=== PATIENT | male | born 1980 | race African-American/Black ===

== ENCOUNTER 2023-10-15 16:23 | Observation (INO) ==
--- NOTE | 2023-10-15 16:49 | ED Triage Note ---
Date of Service October 15, 2023 Provider in Triage Author: Suzie Velázquez History of Present Illness This patient was briefly evaluated while in triage. An abbreviated physical exam was performed. This patient is a 43-year-old Male who presents to the ED for evaluation of right lower abdominal pain. He states pain started around 11 AM when he was on a zoom meeting. Pain is in the right lower side. He states he feels somewhat constipated and reports some slight difficulty urinating. Physical Exam VITALS: Vitals are noted on the nurse's note and reviewed by myself. GENERAL: This is a 43-year-old male, in no acute distress, nondiaphoretic, well- developed well-nourished. SKIN: The skin was without rashes, erythema, edema, or bruising. HEAD: Normocephalic atraumatic. EARS: External auditory canals clear, tympanic membranes pearly keller without erythema or effusion bilaterally. EYES: Pupils equal round and reactive to light and accommodation. Conjunctivae without injection, sclerae without icterus. Extraocular movements intact. NOSE: Patent, turbinates without inflammation or discharge. No sinus tenderness. MOUTH: Mucous membranes moist. Tonsils are not enlarged. Pharynx without erythema or exudate. Uvula midline. Airway patent. Tongue does not deviate. NECK: Supple without nuchal rigidity. No lymphadenopathy. No thyromegaly. Cervical spine is nontender. No JVD. HEART: Regular rate and rhythm without murmurs gallops or rubs. LUNGS: Clear to auscultation bilaterally without wheezes, rales or rhonchi. No dullness to percussion. No retractions or accessory muscle use. ABDOMEN: Positive bowel sounds x 4. Normal tympanic percussion. Soft, nontender, without masses or organomegaly. Adorno sign negative. No guarding or rebound tenderness. MUSCULOSKELETAL: No muscle atrophy, erythema, or edema noted. Full range of motion without joint tenderness in all extremities. No tenderness to palpation. Normal gait. Strength 5/5 throughout. NEURO: Patient was alert and oriented to person place and time. Normal sensation to light and sharp touch. Deep tendon reflexes 2+ throughout. No focal neurological deficits. Initial orders for labs and / or imaging were placed and patient was placed in the waiting area until a bed is available. Please see further documentation for the full ED course.
--- NOTE | 2023-10-15 16:51 | Emergency Department Note ---
ED Provider Note History of Present Illness Chief Complaint: Abdominal Pain Stated Complaint: ABD PAIN NEAR APPENDIX AREA Time Seen by Provider: 10/15/23 16:49 This patient is a 43-year-old Male who presents to the ED for evaluation of right lower abdominal pain. He states pain started around 11 AM when he was on a zoom meeting. Pain is in the right lower side. He states he feels somewhat constipated and reports some slight difficulty urinating. Denies nausea/vomiting or any fevers. 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 He states pain is worse with standing and rates it a 7/10. Home Medications Medication Instructions Recorded Confirmed Type [place] Sea Hutson 1 cap PO QPM 10/15/23 10/15/23 History atorvastatin 20 mg tablet 20 mg PO QPM 10/15/23 10/15/23 History flaxseed oil 1,000 mg capsule 1,000 mg PO QPM 10/15/23 10/15/23 History multivitamin 1 tab PO DAILY 10/15/23 10/15/23 History Allergies Allergy/AdvReac Type Severity Reaction Status Date / Time pollen extracts Allergy Intermediate ITCHY Verified 10/15/23 20:01 EYES, SNEEZING Past Med/Surg History Medical History Low back pain Surgical History [place] teeth extracted Family History Family/Other Diabetes Coronary heart disease Social History Smoking Status: Never smoker Hx Alcohol Use: No Hx Substance Use: No Preferred Language: Russian Communication Ability: Effective Visual Impairment: No Limitations Hearing Ability: Normal marital status: marital status details: to his , 2 sons -- ages 3 and 1 yo. 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 How many Children do You have: 2 Feels Safe at Home: Yes Diet Comment: Keto diet caffeine: No Physical Activity Frequency: 5-6 Times per Week Physical Activity Frequency Comment: TM, walking or running 30 to 45 minutes/session Seatbelt Use: always Physical Exam Vital Signs Vital Signs - 24 hr 10/15/23 16:45 10/15/23 20:40 10/15/23 22:26 Temperature 36.4 C L Temperature Source Temporal Artery Scan Pulse Rate 91 H 75 Pulse Rate [Finger] 84 Respiratory Rate 16 18 Respiratory Effort / Characteristics Non-Labored Spontaneous Non-Labored Spontaneous Respiratory Depth Normal Normal Blood Pressure 140/96 Blood Pressure [Left Arm] 150/102 H Blood Pressure Mean 110 Blood Pressure Mean [Left Arm] 118 Pulse Oximetry 97 100 Oxygen Delivery Method Room Air Room Air Sepsis Recent Fever Within 48 Hours No Sepsis New/Unexplained Change in Mental Status N/A Sepsis Action Taken by Nursing No Action Required 10/15/23 23:01 10/15/23 23:32 10/15/23 23:50 Temperature Temperature Source Pulse Rate 74 68 Pulse Rate [Finger] Respiratory Rate 17 13 Respiratory Effort / Characteristics Respiratory Depth Blood Pressure 134/85 113/79 Blood Pressure [Left Arm] Blood Pressure Mean 101 90 Blood Pressure Mean [Left Arm] Pulse Oximetry 97 97 Oxygen Delivery Method Room Air Room Air Room Air Sepsis Recent Fever Within 48 Hours Sepsis New/Unexplained Change in Mental Status Sepsis Action Taken by Nursing VITALS: Vitals are noted on the nurse's note and reviewed by myself. GENERAL: This is a 43-year-old male, in no acute distress, well-developed well- nourished. SKIN: The skin was without rashes. HEART: Regular rate and rhythm without murmurs gallops or rubs. LUNGS: Clear to auscultation bilaterally without wheezes, rales or rhonchi. ABDOMEN: Positive bowel sounds x 4. Soft, moderate tenderness in the right lower quadrant. No guarding or rebound tenderness. NEURO: Patient was alert and oriented to person place and time. Course Administered Medications Discontinued Medications Bupivacaine HCl/Epinephrine Bitart (Bupivacaine/Epinephrine 0.5% Mpf 1:200,000 30 Ml Vial) Confirm Administered Dose 30 ml .ROUTE .STK-MED ONE Stop: 10/15/23 23:33 Last Admin: 10/16/23 01:01 Dose: 30 ml Documented By: BEN Cefoxitin Sodium (Mefoxin) 2,000 mg in 60 mls @ 100 mls/hr IV NOW STA Stop: 10/15/23 22:17 Last Infusion: 10/15/23 23:31 Dose: Infused Documented By: Admin: 10/15/23 22:47 Dose: 100 mls/hr Documented By: TRINH Ioversol (Optiray 320 125ml) 116 ml IV ONCE ONE Stop: 10/15/23 20:28 Last Admin: 10/15/23 20:29 Dose: 116 ml Documented By: DEEP Morphine Sulfate (Morphine Sulfate 4 Mg/Ml 1 Ml Carp\Vial) 4 mg IV NOW STA Stop: 10/15/23 21:59 Last Admin: 10/15/23 22:48 Dose: 4 mg Documented By: TRINH Ondansetron HCl (Ondansetron Inj 2 Mg/Ml 2 Ml Vial) 4 mg IV NOW STA Stop: 10/15/23 21:59 Last Admin: 10/15/23 22:47 Dose: 4 mg Documented By: TRINH Medical Decision Making Differential Diagnosis Appendicitis, testicular torsion, infections, diverticulitis, UTI, obstruction, mesenteric ischemia, aortic pathology, inflammatory bowel disease, renal colic, PUD, pancreatitis, biliary pathology, hernia, volvulus, constipation, as well as other pathologies. Home Medications was personally reviewed by me Laboratory Data Attestation: I reviewed the patient's lab results. 10/15/23 17:12 10/15/23 17:12 Lab Results 10/15/23 10/15/23 Range/Units 17:00 17:12 WBC 13.62 H (4.8-10.8) K/ul RBC 4.97 (4.70-6.10) M/uL Hgb 12.7 L (14.0-18.0) g/dl Hct 38.7 L (42.0-52.0) % MCV 77.9 L (80.0-100.0) fL MCH 25.6 (25.0-34.0) pg MCHC 32.8 (32.0-36.0) g/dL RDW Std Deviation 42.6 (36.4-46.3) fL RDW Coeff of Josias 15.3 H (11.5-14.5) % Plt Count 271 (130-400) K/uL MPV 11.2 (9.4-12.4) fL Immature Gran % (Auto) 0.5 % Neut % (Auto) 69.1 % Lymph % (Auto) 20.9 % [place] % (Auto) 8.5 % Eos % (Auto) 0.6 % Baso % (Auto) 0.4 % Neut # (Auto) 9.40 H (1.40-6.50) K/uL Lymph # (Auto) 2.85 (1.20-3.40) K/uL [place] # (Auto) 1.16 H (0.11-0.59) K/uL Eos # (Auto) 0.08 (0.00-0.50) K/uL Baso # (Auto) 0.06 (0.00-0.20) K/uL Immature Gran # (Auto) 0.07 (0.01-0.20) K/uL Sodium 138 (136-145) mmol/L Potassium 3.8 (3.5-5.1) mmol/L Chloride 104 (98-107) mmol/L Carbon Dioxide 25 (21-32) mmol/L Anion Gap 9 (3-11) BUN 20 (6-23) mg/dl Creatinine 0.90 (0.6-1.4) mg/dl Est Cr Clr Drug Dosing 167.6 ml/min Est GFR ( Amer) 121.7 ml/min Est GFR (Non-Af Amer) 105.0 ml/min BUN/Creatinine Ratio 22.2 H (10-20) Glucose 84 (70-99(Fasting)) mg/dl Calcium 9.2 (8.6-10.3) mg/dl Total Bilirubin 0.4 (0.2-1.0) mg/dl AST 21 (13-39) U/L ALT 20 (7-52) U/L Alkaline Phosphatase 60 (34-104) U/L Total Protein 7.6 (6.0-8.3) gm/dl Albumin 4.4 (3.4-5.0) gm/dl Globulin 3.2 (2.5-4.0) gm/dl Albumin/Globulin Ratio 1.4 (0.9-2) Lipase 20 (11-82) U/L Urine Color Yellow Urine Appearance Clear (Clear) Urine pH 5.5 (4.5-7.5) Ur Specific [place] 1.025 (1.000-1.030) Urine Protein Negative (Negative) Urine Glucose (UA) Negative (Negative) Urine Ketones Negative (Negative) Urine Blood Negative (Negative) Urine Nitrite Negative (Negative) Urine Bilirubin Negative (Negative) Urine Urobilinogen Negative (Negative) Ur Leukocyte Esterase Negative (Negative) Imaging Data Attestation: I personally reviewed and interpreted this imaging study as follows: Radiologist's Impression: Abdomen/Pelvis CT 10/15/23 16:49 CR Exam(s): CT ABDOMEN + PELVIS With Contrast IV Amt: 116 ml optiray 320 EXAM: CT Abdomen and Pelvis With Intravenous Contrast CLINICAL HISTORY: Reason for exam: rlq pain. TECHNIQUE: Axial computed tomography images of the abdomen and pelvis with intravenous contrast. CTDI is 28.28 mGy and DLP is 1366.67 mGy-cm. Automated exposure control was utilized for the study. A dose lowering technique was utilized adhering to the principles of ALARA. CONTRAST: Patient received 116 ml optiray 320 of IV contrast COMPARISON: No relevant prior studies available. FINDINGS: Lung bases: Unremarkable. No mass. No consolidation. ABDOMEN: Liver: Unremarkable. No mass. Gallbladder and bile ducts: Unremarkable. No calcified stones. No ductal dilation. Pancreas: Unremarkable. No mass. No ductal dilation. Spleen: Unremarkable. No splenomegaly. Adrenals: Unremarkable. No mass. Kidneys and ureters: Unremarkable. No solid mass. No hydronephrosis. Stomach and bowel: Unremarkable. No obstruction. No mucosal thickening. PELVIS: Appendix: Positive for appendicitis, consisting of a distended appendix measuring up to 1.5 cm of wall thickening and periappendiceal fat stranding. No perforation or abscess. Bladder: Unremarkable. No mass. Reproductive: Unremarkable as visualized. ABDOMEN and PELVIS: Intraperitoneal space: Unremarkable. No free air. No significant fluid collection. Bones/joints: No acute fracture. No dislocation. Soft tissues: Unremarkable. Vasculature: Unremarkable. No abdominal aortic aneurysm. Lymph nodes: Unremarkable. No enlarged lymph nodes. IMPRESSION: Positive for appendicitis, consisting of a distended appendix measuring up to 1.5 cm of wall thickening and periappendiceal fat stranding. No perforation or abscess. Communications: Verify Receipt Electronically signed by: Stephen Meyer MD 10/15/23 21:13 PM MDM Narrative This patient is a 43-year-old male who presents to the emergency department for evaluation of right lower quadrant abdominal pain. Labs revealed a leukocytosis of 13,000. CT was consistent with appendicitis, no rupture or abscess. Patient given a dose of cefoxitin. Case discussed with the general surgeon, Dr. Huggins who will take the patient to the OR for further management. Patient initially declined analgesics, later did complain of pain was given a small dose of morphine with Zofran. Impression Appendicitis Discharge Plan Visit Data Chief Complaint: Abdominal Pain Stated Complaint: ABD PAIN NEAR APPENDIX AREA ED Provider: Nelida Morgan ED Midlevel Provider: Suzie Velázquez Discharge Problem: Appendicitis Discharge Instructions Interventions: ED Discharge Assessment Last Done: 10/15/23 23:50
[2023-10-15 17:17] LABS: Appearance Urine Clear (Clear); Bilirubin Urine Negative (Negative); Blood Urine Negative (Negative); Color Urine Yellow; Glucose Urine UA Negative (Negative); Ketones Urine Negative (Negative); Leukocyte Esterase Urine Negative (Negative); Nitrite Urine Negative (Negative); Protein Urine Negative (Negative); Specific Gravity Urine 1.025 (1.000-1.030); Urobilinogen Urine Negative (Negative); pH Urine 5.5 (4.5-7.5)
[2023-10-15 18:03] LABS: Basophils # (auto) 0.06 K/uL (0.00-0.20); Basophils % (auto) 0.4 %; Eosinophils # (auto) 0.08 K/uL (0.00-0.50); Eosinophils % (auto) 0.6 %; Hematocrit (blood only) 38.7 % (42.0-52.0); Hemoglobin 12.7 g/dl (14.0-18.0); Immature Granulocytes # (auto) 0.07 K/uL (0.01-0.20); Immature Granulocytes % (auto) 0.5 %; Lymphocytes # (auto) 2.85 K/uL (1.20-3.40); Lymphocytes % (auto) 20.9 %; Mean Corpuscular Hemoglobin 25.6 pg (25.0-34.0); Mean Corpuscular Hgb Conc 32.8 g/dL (32.0-36.0); Mean Corpuscular Volume 77.9 fL (80.0-100.0); Mean Platelet Volume 11.2 fL (9.4-12.4); Monocytes # (auto) 1.16 K/uL (0.11-0.59); Monocytes % (auto) 8.5 %; Neutrophils % (auto) 69.1 %; Platelet Count 271 K/uL (130-400); RDW Coefficient of Variation 15.3 % (11.5-14.5); RDW Standard Deviation 42.6 fL (36.4-46.3); Red Blood Count 4.97 M/uL (4.70-6.10); White Blood Count 13.62 K/ul (4.8-10.8)
[2023-10-15 19:52] LABS: Albumin Level 4.4 gm/dl (3.4-5.0); Bilirubin,Total 0.4 mg/dl (0.2-1.0); Calcium 9.2 mg/dl (8.6-10.3); Potassium 3.8 mmol/L (3.5-5.1)
[2023-10-15 19:58] LABS: Albumin Globulin Ratio 1.4 (0.9-2); BUN Creatinine Ratio 22.2 (10-20); Creatinine Clr Calc Pharmacy 167.6 ml/min; Est GFR (African American) 121.7 ml/min; Globulin 3.2 gm/dl (2.5-4.0); Total Protein 7.6 gm/dl (6.0-8.3)
[2023-10-15] MEDS ORDERED: OPTIRAY 320 125ml IV ONE (20:27)
--- NOTE | 2023-10-15 21:14 | CT Scan Report ---
Exam(s): CT ABDOMEN + PELVIS With Contrast IV Amt: 116 ml optiray 320 EXAM: CT Abdomen and Pelvis With Intravenous Contrast CLINICAL HISTORY: Reason for exam: rlq pain. TECHNIQUE: Axial computed tomography images of the abdomen and pelvis with intravenous contrast. CTDI is 28.28 mGy and DLP is 1366.67 mGy-cm. Automated exposure control was utilized for the study. A dose lowering technique was utilized adhering to the principles of ALARA. CONTRAST: Patient received 116 ml optiray 320 of IV contrast COMPARISON: No relevant prior studies available. FINDINGS: Lung bases: Unremarkable. No mass. No consolidation. ABDOMEN: Liver: Unremarkable. No mass. Gallbladder and bile ducts: Unremarkable. No calcified stones. No ductal dilation. Pancreas: Unremarkable. No mass. No ductal dilation. Spleen: Unremarkable. No splenomegaly. Adrenals: Unremarkable. No mass. Kidneys and ureters: Unremarkable. No solid mass. No hydronephrosis. Stomach and bowel: Unremarkable. No obstruction. No mucosal thickening. PELVIS: Appendix: Positive for appendicitis, consisting of a distended appendix measuring up to 1.5 cm of wall thickening and periappendiceal fat stranding. No perforation or abscess. Bladder: Unremarkable. No mass. Reproductive: Unremarkable as visualized. ABDOMEN and PELVIS: Intraperitoneal space: Unremarkable. No free air. No significant fluid collection. Bones/joints: No acute fracture. No dislocation. Soft tissues: Unremarkable. Vasculature: Unremarkable. No abdominal aortic aneurysm. Lymph nodes: Unremarkable. No enlarged lymph nodes. IMPRESSION: Positive for appendicitis, consisting of a distended appendix measuring up to 1.5 cm of wall thickening and periappendiceal fat stranding. No perforation or abscess. Communications: Verify Receipt Electronically signed by: Stephen Meyer MD 10/15/23 21:13 PM
[2023-10-15] MEDS ORDERED: cefOXitin 2,000 MG/60 ML BAG IV STA (21:42)
[2023-10-15] MEDS ORDERED: MoRPHine SULFATE 4 MG/ML 1 ML CARP\\VIAL IV STA (21:58)
[2023-10-15] MEDS ORDERED: ONDANSETRON INJ 2 MG/ML 2 ML VIAL IV STA (21:58)
--- NOTE | 2023-10-15 22:46 | History & Physical Report ---
Date of Service October 15, 2023 Assessment & Plan (1) Appendicitis: Plan 43-year-old gentleman with acute appendicitis. I discussed the risks and benefits of a laparoscopic appendectomy with him and his . We discussed the postoperative recovery and restrictions. All the questions were answered, and they are agreeable to proceed with surgery. Consent has been obtained. We will take him to the operating room at the earliest convenience. History of Present Illness Primary Care Provider: Praveen East MD 43-year-old presents with a 12-hour history of increasing right lower quadrant abdominal pain. The pain continued to worsen throughout the day. He denies nausea or vomiting. He denies fevers or chills. He is having normal bowel movements. The pain is sharp in nature. He last ate at 130. CT scan demonstrates acute appendicitis. Allergies Allergy/AdvReac Type Severity Reaction Status Date / Time pollen extracts Allergy Intermediate ITCHY Verified 10/15/23 20:01 EYES, SNEEZING Home Medications Medication Instructions Recorded Confirmed Type [place] Sea Hutson 1 cap PO QPM 10/15/23 10/15/23 History atorvastatin 20 mg tablet 20 mg PO QPM 10/15/23 10/15/23 History flaxseed oil 1,000 mg capsule 1,000 mg PO QPM 10/15/23 10/15/23 History multivitamin 1 tab PO DAILY 10/15/23 10/15/23 History Past Med/Surg History Medical History Low back pain Surgical History [place] teeth extracted Family History Family/Other Diabetes Coronary heart disease Social History Smoking Status: Never smoker Hx Alcohol Use: No Hx Substance Use: No Preferred Language: Danish Communication Ability: Effective Visual Impairment: No Limitations Hearing Ability: Normal marital status: marital status details: to his , 2 sons -- ages 3 and 1 yo. 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 Feels Safe at Home: Yes Diet Comment: Keto diet caffeine: No Physical Activity Frequency: 5-6 Times per Week Physical Activity Frequency Comment: TM, walking or running 30 to 45 minutes/se ssion Seatbelt Use: always Review of Systems Review of Systems: All systems reviewed & are unremarkable except as noted in HPI & below Physical Exam Constitutional: WD/WN, vitals as above Eyes: PERRL, conjunctivae normal, anicteric sclerae Neck: trachea midline, no thyromegaly Respiratory: normal respiratory effort; no respiratory distress and no labored breathing Cardiovascular: Rate/Rhythm: regular rate and regular rhythm Gastrointestinal (Abdomen): Inspection/Auscultation: abdomen normal to inspection; abdomen not distended Percussion/Palpation: + abdomen tender (RLQ) and abdomen soft; no guarding and abdomen not rigid Positive Rovsing sign Skin: no rashes, warm and dry Psychiatric: A+Ox3, euthymic affect Results & Data Results & Data Vital Signs (Past 12 Hours) Vital Signs Temp Pulse Pulse Resp BP BP Pulse Ox 10/15/23 20:40 84 18 150/102 H 100 10/15/23 16:45 36.4 C L 91 H 16 140/96 97 O2 Del Method 10/15/23 20:40 Room Air 10/15/23 16:45 Room Air Laboratory Results 10/15/23 10/15/23 Range/Units 17:12 17:00 WBC 13.62 H (4.8-10.8) K/ul RBC 4.97 (4.70-6.10) M/uL Hgb 12.7 L (14.0-18.0) g/dl Hct 38.7 L (42.0-52.0) % MCV 77.9 L (80.0-100.0) fL MCH 25.6 (25.0-34.0) pg MCHC 32.8 (32.0-36.0) g/dL RDW Std Deviation 42.6 (36.4-46.3) fL RDW Coeff of Josias 15.3 H (11.5-14.5) % Plt Count 271 (130-400) K/uL MPV 11.2 (9.4-12.4) fL Immature Gran % (Auto) 0.5 % Neut % (Auto) 69.1 % Lymph % (Auto) 20.9 % [place] % (Auto) 8.5 % Eos % (Auto) 0.6 % Baso % (Auto) 0.4 % Neut # (Auto) 9.40 H (1.40-6.50) K/uL Lymph # (Auto) 2.85 (1.20-3.40) K/uL [place] # (Auto) 1.16 H (0.11-0.59) K/uL Eos # (Auto) 0.08 (0.00-0.50) K/uL Baso # (Auto) 0.06 (0.00-0.20) K/uL Immature Gran # (Auto) 0.07 (0.01-0.20) K/uL Sodium 138 (136-145) mmol/L Potassium 3.8 (3.5-5.1) mmol/L Chloride 104 (98-107) mmol/L Carbon Dioxide 25 (21-32) mmol/L Anion Gap 9 (3-11) BUN 20 (6-23) mg/dl Creatinine 0.90 (0.6-1.4) mg/dl Est Cr Clr Drug Dosing 167.6 ml/min Est GFR ( Amer) 121.7 ml/min Est GFR (Non-Af Amer) 105.0 ml/min BUN/Creatinine Ratio 22.2 H (10-20) Glucose 84 (70-99(Fasting)) mg/dl Calcium 9.2 (8.6-10.3) mg/dl Total Bilirubin 0.4 (0.2-1.0) mg/dl AST 21 (13-39) U/L ALT 20 (7-52) U/L Alkaline Phosphatase 60 (34-104) U/L Total Protein 7.6 (6.0-8.3) gm/dl Albumin 4.4 (3.4-5.0) gm/dl Globulin 3.2 (2.5-4.0) gm/dl Albumin/Globulin Ratio 1.4 (0.9-2) Lipase 20 (11-82) U/L Urine Color Yellow Urine Appearance Clear (Clear) Urine pH 5.5 (4.5-7.5) Ur Specific [place] 1.025 (1.000-1.030) Urine Protein Negative (Negative) Urine Glucose (UA) Negative (Negative) Urine Ketones Negative (Negative) Urine Blood Negative (Negative) Urine Nitrite Negative (Negative) Urine Bilirubin Negative (Negative) Urine Urobilinogen Negative (Negative) Ur Leukocyte Esterase Negative (Negative) Diagnostic Findings ADDENDUM ADDENDUM: 10/15/23 21:20 Verify Receipt Verified receipt with KAREN Bautista report to Suzie Eber on 10/15 21:20 (-05:00) Electronically signed by: Stephen Meyer MD Electronically signed by: Stephen Meyer MD 10/15/23 21:13 PM ADDENDUM END Exam(s): CT ABDOMEN + PELVIS With Contrast IV Amt: 116 ml optiray 320 EXAM: CT Abdomen and Pelvis With Intravenous Contrast CLINICAL HISTORY: Reason for exam: rlq pain. TECHNIQUE: Axial computed tomography images of the abdomen and pelvis with intravenous contrast. CTDI is 28.28 mGy and DLP is 1366.67 mGy-cm. Automated exposure control was utilized for the study. A dose lowering technique was utilized adhering to the principles of ALARA. CONTRAST: Patient received 116 ml optiray 320 of IV contrast COMPARISON: No relevant prior studies available. FINDINGS: Lung bases: Unremarkable. No mass. No consolidation. ABDOMEN: Liver: Unremarkable. No mass. Gallbladder and bile ducts: Unremarkable. No calcified stones. No ductal dilation. Pancreas: Unremarkable. No mass. No ductal dilation. Spleen: Unremarkable. No splenomegaly. Adrenals: Unremarkable. No mass. Kidneys and ureters: Unremarkable. No solid mass. No hydronephrosis. Stomach and bowel: Unremarkable. No obstruction. No mucosal thickening. PELVIS: Appendix: Positive for appendicitis, consisting of a distended appendix measuring up to 1.5 cm of wall thickening and periappendiceal fat stranding. No perforation or abscess. Bladder: Unremarkable. No mass. Reproductive: Unremarkable as visualized. ABDOMEN and PELVIS: Intraperitoneal space: Unremarkable. No free air. No significant fluid collection. Bones/joints: No acute fracture. No dislocation. Soft tissues: Unremarkable. Vasculature: Unremarkable. No abdominal aortic aneurysm. Lymph nodes: Unremarkable. No enlarged lymph nodes. IMPRESSION: Positive for appendicitis, consisting of a distended appendix measuring up to 1.5 cm of wall thickening and periappendiceal fat stranding. No perforation or abscess. (1) Appendicitis Appendicitis type: acute appendicitis Acute appendicitis type: with localized peritonitis Appendicitis gangrene presence: without gangrene Appendicitis perforation presence: without perforation Appendicitis abscess presence: without abscess Qualified Code(s): K35.30 - Acute appendicitis with localized peritonitis, without perforation or gangrene
[2023-10-15] MEDS ORDERED: BUPIVACAINE/EPINEPHRINE 0.5% MPF 1:200,000 30 ML VIAL ONE (23:32)
[2023-10-15] MEDS ORDERED: fentaNYL citrate PF 100 MCG/2 ML VIAL ONE ×2 (23:48→23:49)
[2023-10-15] MEDS ORDERED: MIDAZOLAM HCL 1 MG/ML 2ML VIAL ONE (23:48)
[2023-10-15] MEDS ORDERED: PROPOFOL IV EMULSION 10 MG/ML 20 ML VIAL IV ONE (23:55)
[2023-10-15] MEDS ORDERED: SUCCINYLCHOLINE CHLORIDE 20 MG/ML 10 ML VIAL IV ONE (23:56)
[2023-10-15] MEDS ORDERED: ROCURONIUM BROMIDE 10 MG/ML 5 ML VIAL IV ONE (23:56)
--- NOTE | 2023-10-16 00:02 | Anesthesiology Consultation ---
Date of Service October 15, 2023 Assessment & Plan Chart Review Chart Review: Acceptable Risk for Surgery Consults Requested none ASA [id number] Proposed Anesthesia Anesthesia Type: General Risk / Benefits Reviewed With: PT / POA / Parent / Guardian, Accepts Plan and Informed Consent Obtained History Surgery Operation Date: 10/15/23 22:35 Proposed Procedures p Laparoscopic Appendectomy - Duane Huggins MD Height/Weight Height: 6 ft Weight: 160.7 kg Allergies Allergy/AdvReac Type Severity Reaction Status Date / Time pollen extracts Allergy Intermediate ITCHY Verified 10/15/23 20:01 EYES, SNEEZING Medications Home Medications Medication Instructions Recorded Confirmed Last Taken [place] 1 cap PO QPM 10/15/23 10/15/23 10/14/23 atorvastatin 20 mg tablet 20 mg PO QPM 10/15/23 10/15/23 10/14/23 flaxseed oil 1,000 mg capsule 1,000 mg PO QPM 10/15/23 10/15/23 10/14/23 multivitamin 1 tab PO DAILY 10/15/23 10/15/23 10/15/23 NPO Date Last Intake of Fluids: 10/15/23 Time Last Intake of Fluids: 16:00 Date Last Intake of Solids: 10/15/23 Time Last Intake of Solids: 14:00 Past Medical History Medical History Low back pain Exercise / Class Metabolic Activity II 4-5 Yardwork/Stairs/Walk up hill Past Family History Family History Family/Other Diabetes Coronary heart disease Past Surgical History Surgical History [place] teeth extracted Past Anesthesia History No Hx of Anesthesia Complications and No Family Hx of Anesthesia Complications History of PONV No Hx of PONV and No Hx of Motion Sickness Social History Smoking Status: Never smoker Hx Alcohol Use: No Hx Substance Use: No Physical Exam Vital Signs Last Vital Signs Temp 97.5 F L 10/15/23 16:45 Pulse 68 10/15/23 23:32 Resp 13 10/15/23 23:32 BP 113/79 10/15/23 23:32 Pulse Ox 97 10/15/23 23:32 O2 Del Method Room Air 10/15/23 23:50 ENMT Mouth: no dentition abnormality Thyromental Distance: > or= 3.5 Finger Breadths Mallampati Class: III Neck normal visual inspection Respiratory normal respiratory effort Auscultation: lungs clear to auscultation bilaterally Cardiovascular Rate/Rhythm: regular rate and regular rhythm Testing Laboratory Results 10/15/23 17:12 10/15/23 17:12 Urine Color Yellow 10/15/23 17:00 Urine Appearance Clear (Clear) 10/15/23 17:00 Urine pH 5.5 (4.5-7.5) 10/15/23 17:00 Ur Specific [place] 1.025 (1.000-1.030) 10/15/23 17:00 Urine Protein Negative (Negative) 10/15/23 17:00 Urine Glucose (UA) Negative (Negative) 10/15/23 17:00 Urine Ketones Negative (Negative) 10/15/23 17:00 Urine Nitrite Negative (Negative) 10/15/23 17:00 Ur Leukocyte Esterase Negative (Negative) 10/15/23 17:00
[2023-10-16] MEDS ORDERED: LIDOCAINE 2% 2 ML VIAL/AMP(20MG/ML) INFIL ONE (00:27)
[2023-10-16] MEDS ORDERED: ePHEDrine sulfate 50 MG/ML AMP IV PRN (00:29)
[2023-10-16] MEDS ORDERED: ONDANSETRON INJ 2 MG/ML 2 ML VIAL IV PRN ×2 (00:29→02:24)
[2023-10-16] MEDS ORDERED: ATROPINE SULFATE 0.1 MG/ML 10ML SYR IV PRN (00:29)
[2023-10-16] MEDS ORDERED: SUGAMMADEX SODIUM 200 MG/2 ML VIAL IV ONE (00:59)
[2023-10-16] MEDS ORDERED: ONDANSETRON INJ 2 MG/ML 2 ML VIAL ONE ×2 (01:10→01:34)
--- NOTE | 2023-10-16 01:12 | Operative Report ---
Post Operative Report Pre & Post Diagnosis Operation Date: 10/15/23 22:35 Pre-Op Diagnosis: Acute Appendicitis Post-Op Diagnosis: Acute Appendicitis I identified the patient and participated in the time-out.: Yes Procedure Operation Date: 10/15/23 22:35 Actual Procedures p Laparoscopic Appendectomy(Not Applicable) - Duane Huggins MD Surgeon Duane Huggins MD Process Safety Engineering Technologist None Estimated Blood Loss 5 Findings Consistent with Post-Op Diagnosis Acute suppurative appendicitis; no perforation Specimens Appendix Drains None Anesthesia Type General Complications No immediate complication Description of Procedure The patient was taken to the operating room, and placed supine on the operating table. A timeout was performed, perioperative antibiotics were administered, SCD boots were placed. After adequate anesthesia and analgesia was obtained, the abdomen was prepped and draped in the normal sterile fashion. A 1 cm incision was made in the supraumbilical region and carried down to the level of the fascia. A trach hook was used to grasp the fascia and elevated and a varies needle was used to enter the abdominal cavity. The abdomen was insufflated to a pressure of 15 mmHg, and a 5 mm trocar was placed in this location. A 5 mm 30 degree laparoscope was placed into the abdominal cavity, and the abdomen was surveyed. The patient was placed in Trendelenburg and slightly to the left. One 5 mm trocar was placed in the right upper quadrant, and one 12 mm trocar was placed in the left lower quadrant under direct visualization. The right colon was identified and traced down to the cecum. The appendix was identified and elevated anteriorly and medially. A window was created at the base of the appendix with a [place] dissector. The Endo PORTILLO stapler was used to transect the appendix at its base through noninflamed tissue, and subsequently the mesoappendix. The appendix was placed in an Endo Catch bag, and removed via the left lower quadrant port site. Attention was turned to hemostasis, which was excellent. The abdomen was copiously irrigated and suctioned free, and again hemostasis was found to be excellent. All trochars removed under direct visualization. The abdomen was desufflated. The fascia in the 12 mm port site was closed with a 0 Vicryl suture. The skin was closed with a running 4-0 Monocryl subcuticular stitch. Dermabond was applied. The patient tolerated the procedure without complication, and was transferred in stable condition to the PACU. All instrument, needle, and sponge counts were correct at the end of the case. I attest to the content of the Intraoperative Record and any orders documented therein. Any exceptions are noted below.
--- NOTE | 2023-10-16 01:20 | Anesthesiology Progress Note ---
Date of Service October 16, 2023 Anesthesia Post Procedure Vital Signs Vital Signs: Temp Pulse Pulse Resp BP BP Pulse Ox 10/15/23 23:50 10/15/23 23:32 68 13 113/79 97 10/15/23 23:01 74 17 134/85 97 10/15/23 22:26 75 10/15/23 20:40 84 18 150/102 H 100 10/15/23 16:45 97.5 F L 91 H 16 140/96 97 O2 Del Method 10/15/23 23:50 Room Air 10/15/23 23:32 Room Air 10/15/23 23:01 Room Air 10/15/23 22:26 10/15/23 20:40 Room Air 10/15/23 16:45 Room Air Pain Intensity Right Abdomen: Pain Intensity: 7 Transfer of Care Handoff Completed per policy Notes Mental Status: alert / awake / arousable and participated in evaluation Patient Amnestic to Procedure: Yes Nausea / Vomiting: adequately controlled Pain: adequately controlled Airway Patency, RR, SpO2: stable & adequate BP & HR: stable & adequate Hydration State: stable & adequate Anesthetic Complications: no major complications apparent and Pt Satisfied with anesthetic care
[2023-10-16] MEDS ORDERED: fentaNYL citrate PF 100 MCG/2 ML VIAL ONE (01:34)
[2023-10-16] MEDS: fentaNYL citrate PF 100 MCG/2 ML VIAL IV PRN ×2 (01:40→01:45)
[2023-10-16] MEDS ORDERED: MoRPHine SULFATE 2 MG/ML CARP IV PRN (02:24)
[2023-10-16] MEDS ORDERED: KETOROLAC 30 MG/ML VIAL IV PRN (02:24)
[2023-10-16] MEDS ORDERED: diphenhydrAMINE Capsule 25 MG CAP PO PRN (02:24)
[2023-10-16] MEDS ORDERED: PROMETHAZINE HCL 12.5 MG in SODIUM CHLORIDE 0.9% 50 ML IV PRN (02:24)
[2023-10-16] MEDS ORDERED: oxyCODONE/ACETAMINOPHEN 5mg/325mg TAB PO PRN (02:24)
[2023-10-16] MEDS ORDERED: ENOXAPARIN INJ 40 MG/0.4 ML SYR SQ SCH (09:00)
--- NOTE | 2023-10-16 11:31 | Surgery Progress Note ---
Date of Service October 16, 2023 Assessment & Plan (1) Appendicitis: Plan POD#1 s/p lap appy doing well advance as tolerated D/C to home F/u in clinic in two weeks Admission and Anticipated Discharge Date Admission Date: October 16, 2023 Subjective doing well; tolerating diet; pain controlled; no nausea/vomiting Physical Exam Physical Exam: NAD A&Ox3 AFVSS Abd soft mild TTP at incisions incisions C/D/I with dermabond Results & Data Vital Signs (Past 12 Hours) Vital Signs Temp Pulse Pulse Pulse Pulse Resp BP 10/16/23 07:48 36.8 C 75 16 10/16/23 06:09 76 10/16/23 04:11 37.0 C 67 15 10/16/23 03:16 36.8 C 66 15 10/16/23 02:45 36.7 C 61 20 10/16/23 02:36 10/16/23 02:36 10/16/23 02:20 36.9 C 59 L 17 10/16/23 02:05 59 L 18 10/16/23 01:55 37.2 C 62 18 10/16/23 01:45 60 16 10/16/23 01:35 62 18 10/16/23 01:25 66 14 10/16/23 01:17 36.2 C L 68 18 10/15/23 23:50 10/15/23 23:32 68 13 113/79 BP BP Pulse Ox O2 Del Method O2 Flow Rate 10/16/23 07:48 147/75 H 92 Room Air 10/16/23 06:09 146/91 H 10/16/23 04:11 162/93 H 100 Nasal Cannula 2 10/16/23 03:16 141/82 H 100 Nasal Cannula 2 10/16/23 02:45 145/80 H 99 Nasal Cannula 2 10/16/23 02:36 Nasal Cannula 2 10/16/23 02:36 98 Nasal Cannula 2 10/16/23 02:20 134/75 98 Nasal Cannula 10/16/23 02:05 152/80 H 100 Nasal Cannula 2 10/16/23 01:55 146/79 H 100 Nasal Cannula 2 10/16/23 01:45 151/83 H 95 Nasal Cannula 2 10/16/23 01:35 148/82 H 94 Room Air 10/16/23 01:25 151/93 H 99 Oxymask 4 10/16/23 01:17 138/59 L 99 Oxymask 6 10/15/23 23:50 Room Air 10/15/23 23:32 97 Room Air (1) Appendicitis Appendicitis type: acute appendicitis Acute appendicitis type: with localized peritonitis Appendicitis gangrene presence: without gangrene Appendicitis perforation presence: without perforation Appendicitis abscess presence: without abscess Qualified Code(s): K35.30 - Acute appendicitis with localized peritonitis, without perforation or gangrene
[2023-10-16] MEDS ORDERED: ATORVASTATIN 20 MG TAB PO SCH (21:00)
== END 2023-10-16 12:30 | disposition home or self-care (01) ==
LOC: ED 16:23 → OR 23:42 → 3W 23:42 → OR 23:50
DX: K35.80 Unspecified acute appendicitis; Z68.42 Body mass index [BMI] 45.0-49.9, adult; E66.01 Morbid (severe) obesity due to excess calories; Z79.899 Other long term (current) drug therapy